=== PATIENT | female | born 1995 | race Hispanic/Latino ===

== ENCOUNTER 2017-02-10 09:34 | Emergency (ER) | payer OTHER ==
[~2017-02-10] VITALS: Ht 157.5 cm; Wt 125.0 kg
[~2017-02-10 09:34] MED LIST: ONDA-53 PO; ONDA4TAB6 PO; TAM75UDCAP PO
[2017-02-10 09:35] VITALS: BP 128/80; PULSE 87; RESP 18; O2SAT 97
--- NOTE | 2017-02-10 10:04 | ED.REPORT ---
HPI-Rash / Abscess Date of Service Feb 10, 2017 ED Provider: Nursing Notes Stated Complaint: SKIN ABSCESS Chief Complaint: Skin Rash/Abscess Allergies: Coded Allergies: No Known Allergies (Unverified , 02/10/17) Scheduled Oseltamivir Phosphate (Tamiflu) 75 Mg Capsule 75 MG PO BID Scheduled PRN Ondansetron (Zofran) 4 Mg Tablet 4 MG PO Q4H PRN PRN For Nausea Ondansetron (Ondansetron) 4 Mg Tablet 4 MG PO TID PRN PRN For Nausea General Time Seen by MD: 10:03 Past Medical History Past Medical History Reports: Asthma Reports: Obesity Past Surgical History denies Family History denies Smoking History Never Smoker Social History Alcohol Use: Denies alcohol use Drug Use: Denies drug use Physical Exam Initial Vital Signs Vital Signs (First) Date Time Temp Pulse Resp B/P Pulse Ox O2 Delivery O2 Flow Rate FiO2 02/10/17 09:35 36.6 87 18 128/80 97 Room Air Discharge & Departure Referrals: NOPCP (PCP) Price Mathias MD Feb 10, 2017 10:04
--- NOTE | 2017-02-10 10:21 | ED.REPORT ---
HPI-Rash / Abscess Date of Service Feb 10, 2017 ED Provider: Thiago Wolfe DO The pt is a 21 y/o female presenting to the ED complaining of an abdominal abscess. She reports going to the ED in [place] 3 days ago due to a bug bite becoming increasingly swollen. It was cut open and packed then. She reports the wound appearing worse than before it was cut open as well as a "weird" smell coming from it. Denies a fever. Nursing Notes Stated Complaint: SKIN ABSCESS Chief Complaint: Skin Rash/Abscess Nursing Notes Reviewed: Yes Allergies: Coded Allergies: No Known Allergies (Unverified , 02/10/17) Scheduled Cephalexin (Cephalexin) 250 Mg Capsule 250 MG PO TID Sulfamethoxazole/Trimeth 800-160 mg (Bactrim DS 800-160 mg) 1 Each Tablet 1 TABLET PO BID Scheduled PRN Hydrocodone-Acetaminophen 5-325 mg (Hydrocodone-Acetaminophen 5-325 mg) 1 Each Tablet 1-2 TABLET PO Q6H PRN PRN For Pain General Time Seen by MD: 10:19 Chief Complaint Abscess Hx Obtained From: Patient Arrived By: Walk-in Onset Occurred: 3 days ago Symptom Duration: Since onset Recent Healthcare: No recent hospitalization, Recent doctor visit Similar Sx Previous: No Past Medical History Past Medical History Reports: Asthma Reports: Obesity Past Surgical History Reports: Tonsillectomy Family History denies Smoking History Never Smoker Social History Alcohol Use: Denies alcohol use Drug Use: Denies drug use Review of Systems Abdominal abscess Constitutional: Denies: Fever Complete sys rev & neg: except as marked. Physical Exam Initial Vital Signs Vital Signs (First) Date Time Temp Pulse Resp B/P Pulse Ox O2 Delivery O2 Flow Rate FiO2 02/10/17 09:35 36.6 87 18 128/80 97 Room Air Initial VS: Reviewed Head / Eyes: Atraumatic, Normocephalic, PERRL Neck: Supple, Non-tender, Full range of motion Respiratory: Breath sounds normal, Clear to auscultation, No respiratory distress Cardiovascular: Regular rate & rhythm, Heart sounds normal, Intact distal pulses Extremities: Vascular intact, Neuro intact, No swelling, No tenderness Neurologic: Alert, Oriented, Nonfocal Psychiatric: Mood/affect normal, Behavior normal, Normal thought content General/Constitutional: Awake, Alert Appearance / Presentation: Positive: Obese Skin: Warm, Dry 1 cm incision at the midline apex of the upper abdomen 3 cm surrounding induration w/o fluctuation Minimal surround cellulitis 2x2 packed into wound Procedures Incision & Drainage Abscess I & D Abscess: Dressing change and wound repacking Time: 10:50 Procedure Performed by: ED physician Consent / Setup / Site Prep: Informed consent provided, Consent from patient , Time-out performed, Hand hygiene observed, Stand sterile technique, Sterile drapes applied Post-Procedure / Complications: Packing placed, Dressing applied, No complications, Condition improved, Tolerated procedure well, Patient stable Re-Eval/Medical Decision Re-Evaluation/Progress : Time of Eval: 11:00 Re-Evaluation/Progress Note: Pt rechecked. Changed dressing and repacked wound. Informed pt of plan for treatment. Pt understands and agrees with plan for treatment. F/U instructions and RTER warnings given. All questions addressed. Counseled Regarding: Diagnosis, Need for follow-up, When/why to return to ED Discharge & Departure Impression: Primary Impression: Abscess Disposition: Home Discharge Condition All VS Reviewed: Yes Condition: Stable Additional Instructions: Thank for you entrusting us with your care today. You were diagnosed with an abscess. Get checked in 2-3 days by your PCP if you are able to. You are able to shower normally. Please take the antibiotics as prescribed. Return to the ER as needed for worsening signs or symptoms such as increasing redness, increasing pain, high fever or any other concerns I hope you feel better soon. Referrals: [facility] [place] Att[facility] Portions of this note were transcribed by Jose So. I, Dr. Wolfe personally performed the history, physical exam and medical decision-making; I reviewed and confirmed the accuracy of the information in the transcribed note. Signed by : Jc Fuentes, 02/10/17 and 1105. copies to: [facility] Thiago Wolfe DO Feb 10, 2017 10:21 Jose So Feb 10, 2017 10:52
[2017-02-10] MEDS ORDERED: CEPH250C PO (10:44)
[2017-02-10] MEDS ORDERED: HYDR-4003 PO (10:44)
[2017-02-10] MEDS ORDERED: SULF1TAB35 PO (10:53)
[2017-02-10 11:13] VITALS: BP 116/75; PULSE 83; RESP 18; O2SAT 98
[2017-02-10 11:19] VITALS: BP 116/75; PULSE 83; RESP 18; O2SAT 98
== END 2017-02-10 11:22 | disposition home or self-care (01) ==
LOC: SED 09:34
DX: L02.211 Cutaneous abscess of abdominal wall (principal); J45.909 Unspecified asthma, uncomplicated